=== PATIENT | female | born 2000 | race Hispanic/Latino ===

== ENCOUNTER 2022-10-20 15:08 | Emergency (ER) | payer BC, SELFPAY ==
[~2022-10-20 15:08] MED LIST: Iopamidol-370 76% 500 ML MDV (1 ML CHARGE) ONE
[2022-10-20 16:43] LABS: #Lymphocytes 1.8 thou/uL (1.20-3.40); #Monocytes 0.5 thou/uL (0.11-0.59); #Neutrophils 11.3 thou/uL (1.40-6.50); %Basophils 0.2 % (0.0-1.0); %Eosinophils 0.2 % (0.0-10.0); %Lymphocytes 13.1 % (28.0-48.0); %Monocytes 3.4 % (0.0-4.0); %Neutrophils 83.2 % (31.0-61.0); Hemoglobin 16.4 g/dL (12.0-16.0); Mean Corpuscular Hemoglobin 28.6 pg (25.0-35.0); Mean Corpuscular Volume 89.5 fl (78.0-98.0); Mean Platelet Volume 6.4 fL (7.4-10.4); Platelet Count 353 10x3/uL (130-400); RBC Distribution Width 11.6 % (11.5-14.5); Red Blood Cell (RBC) Count 5.75 mill/uL (4.00-5.20); White Blood Cell (WBC) Count 13.6 10x3/uL (4.8-10.8)
[2022-10-20 16:56] LABS: BHCG - Serum Negative (NEGATIVE); Pregs Control Background? CLEAR/WHITE (CLR/WHITE); Pregs Control Bar Appear? YES (CONTROL BAR)
[2022-10-20 17:02] LABS: ALT (SGPT) 34 U/L (8-55); AST (SGOT) 30 U/L (5-34); Albumin 5.4 g/dL (3.5-5.0); Alkaline Phosphatase 108 U/L (40-100); Anion Gap 17 mmol/L (10-20); BUN (Urea Nitrogen) 11 mg/dL (7.0-18.7); Bilirubin, Total 0.8 mg/dL (0.2-1.2); Calc. Creatinine Clearance 0 mL/min (70-130); Calcium 10.8 mg/dL (7.8-10.44); Carbon Dioxide 24 mmol/L (22-29); Chloride 103 mmol/L (98-107); Estimated GFR 102; Globulin 3.6 g/dL (2.4-3.5); Glucose 86 mg/dL (70-105); Lipase 13 U/L (8-78); Potassium 4.2 mmol/L (3.5-5.1); Sodium 140 mmol/L (136-145)
[2022-10-20 20:00] LABS: Bilirubin Negative (Negative); Blood, Urine Negative (Negative); Clarity Clear (Clear); Glucose, Urine (Dipstick) Normal (Negative); Ketone, Urine Greater than 150 mg/dL (Negative); Leukocyte Negative Leu/uL (Negative); Nitrite Negative (Negative); Protein, Urine (Dipstick) 20 mg/dL (Neg-Trace); Specific Gravity, Urine 1.022 (1.002-1.036); Urobilinogen Normal mg/dL (Less than 2)
[2022-10-20] MEDS ORDERED: Famotidine/PF 20 mg/2ml Vial ONE (20:37)
[2022-10-20] MEDS ORDERED: Ketorolac Tromethamine 30 MG/ML VIAL ONE (20:37)
[2022-10-20] MEDS ORDERED: Ondansetron PF 4 MG/2 ML Vial ONE (20:37)
== END 2022-10-20 23:30 | disposition home or self-care (01) ==
LOC: ERS 15:08
DX: K29.20 Alcoholic gastritis without bleeding (principal); E86.0 Dehydration; R11.2 Nausea with vomiting, unspecified; D72.829 Elevated white blood cell count, unspecified
CPT/HCPCS: 36415; 74177; 80053; 81003; 83690; 84703; 85025; 96374; 96375; J1885; J2405; Q9967; S0028

== ENCOUNTER 2023-06-16 12:07 | Emergency (ER) | payer BC | END 2023-06-16 14:21 | disposition home or self-care (01) | LOC: ERS 12:07 | DX: R04.0 Epistaxis (principal) | CPT/HCPCS: 99283 ==